=== PATIENT | female | born 1935 | race Caucasian/White ===

== ENCOUNTER 2017-04-07 09:50 | Emergency (ER) | payer MEDICARE, OTHER ==
[2017-04-07 10:01] VITALS: BP 152/83
--- NOTE | 2017-04-07 10:08 | ERNOTE ---
Medical Problem HPI - General Chief Complaint: General Assessment Time Seen by Provider: 04/07/17 10:03 Source: patient Exam Limitations: no limitations - Immun/Allergies/Home Medications Allergies/Adverse Reactions: Allergies Sulfa (Sulfonamide Antibiotics) Adverse Reaction (Unknown, Verified 04/07/17 09: 59) Home Medications: HOME MEDICATIONS Diclofenac Sodium [Voltaren] 75 mg PO BID 07/24/14 [Last Taken Unknown] Diltiazem HCl [Tiazac] 300 mg PO DAILY 07/24/14 [Last Taken Unknown] Diltiazem HCl [Cardizem Cd] 120 mg PO Q24H #30 cap.sr.24h 04/07/17 [Last Taken Unknown] Hydrochlorothiazide [Microzide] 12.5 mg PO DAILY 04/07/17 [Last Taken Unknown] hydrOXYzine PAMOATE [Vistaril] 25 mg PO BID PRN #30 capsule 04/07/17 [Last Taken Unknown] - History of Present History Narrative: Patient arrives fairly anxious, she states she's been having some elevated blood pressures at home. She states that she's been having a lot of stress in her life of late and is noticed that her blood pressure has been going up with her anxiety level. She denies any other complaint at this point. Timing: intermittent Severity: moderate Review of Systems - Review of Systems Constitutional: Present: See HPI EYE: Present: no symptoms reported ENT: Present: no symptoms reported Respiratory: Present: no symptoms reported Cardiology: Present: no symptoms reported Gastrointestinal/Abdominal: Present: no symptoms reported Genitourinary: Present: no symptoms reported Musculoskeletal: Present: no symptoms reported Skin: Present: no symptoms reported Neurological: Present: no symptoms reported Endocrine: Present: no symptoms reported Hematologic/Lymphatic: Present: no symptoms reported Psych: Present: anxiety - Patient's Past Medical History Patient History - Medical: No pertinent hx, Anxiety Patient History - Cardiac/Respiratory: Hypertension, Hyperlipidemia Patient History - Cancer: No Hx of Cancer Patient History - Surgical Procedures: Cataracts, Total Hip Replacement Patient History - Other: None - Social History Living Situations: home Abuse History: No History of abuse Psych History: No pertinent hx Alcohol Use: none Drug Use: none Physical Exam - Physical Exam General Appearance: Present: wd/wn, alert, no apparent distress Head Exam: Present: normal inspection Eye Exam: Normal inspection: bilateral, PERRL: bilateral Ears, Nose, Throat: Present: normal ENT inspection, H, normal pharynx Neck: Present: normal inspection, nontender Respiratory: Present: no respiratory distress, normal breath sounds, no accessory muscle use, chest nontender, lungs clear Cardiovascular/Chest: Present: no murmur, normal peripheral pulses, tachycardia Gastrointestinal/Abdominal: Present: normal bowel sounds, nontender, nondistended, soft, no organomegaly Rectal Exam: Present: deferred Back Exam: Present: normal inspection, normal range of motion Extremity Exam: Present: normal inspection, non-tender, no edema, normal range of motion Neurological Exam: Present: alert, oriented, normal mood/affect, other - patient does appear to be anxious and worried Skin Exam: Present: normal color, warm/dry Lymphatic Exam: Present: no adenopathy ED Progress - Vital Signs Patient's Vital Signs:: I have reviewed the patient's vital signs. Vital Signs: Vital Signs 04/07/17 09:56 Temperature 36.9 C Pulse Rate 104 H Respiratory 12 Rate Blood Pressure 152/83 O2 Sat by Pulse 99 Oximetry - Progress/Reassessment Chief Complaint: General Assessment Plan - Plan Plan: Upon perusal of her blood pressures over the past 2-1/2 years patient runs consistently high with usual MAPs over 100. Patient is currently on hydrochlorothiazide but would likely benefit from additional blood pressure medicine. As the patient has chronic anxiety I am somewhat reluctant to start her on benzodiazepines as I believe she will have difficulty getting off of them. We will try her on Vistaril for anxiety and a calcium channel graciela for her chronic blood pressure. She agrees to follow-up with her family physician in one to 2 weeks to monitor her progress. Departure Clinical Impression: Anxiety Hypertension Qualifiers: Hypertension type: essential hypertension Qualified Code(s): I10 - Essential ( primary) hypertension - Departure Disposition: Home self-care Condition: Good Instructions: Hypertension, [id number], Managing Your High Blood Pressure, Panic Attacks, [id number] Referrals: Valerie Roberts MD [Primary Care Provider] - Prescriptions: Diltiazem HCl [Cardizem Cd] 120 mg PO Q24H #30 cap.sr.24h hydrOXYzine PAMOATE [Vistaril] 25 mg PO BID PRN #30 capsule PRN Reason: Anxiety
== END 2017-04-07 10:35 | disposition home or self-care (01) ==
LOC: ER 09:50
DX: I10 Essential (primary) hypertension (principal); F41.9 Anxiety disorder, unspecified; E78.5 Hyperlipidemia, unspecified